=== PATIENT | male | born 1965 | race Hispanic/Latino ===

== ENCOUNTER → 2021-07-10 11:41 | Emergency (ER) | payer OTHER ==
[~2021-07-10 11:41] MED LIST: Ketorolac Tromethamine 30 MG/ML VIAL ONE
== END | disposition home or self-care (01) ==
LOC: CSHERS 11:41
DX: M17.12 Unilateral primary osteoarthritis, left knee (principal); E66.9 Obesity, unspecified
CPT/HCPCS: 96372; 99283; J1885

== ENCOUNTER 2023-06-18 10:45 | Outpatient (CLI) | payer MEDICARE, OTHER | END 2023-06-18 10:46 | disposition home or self-care (01) | LOC: CSHRAD 10:45 | PROVIDERS: ATTEND Family Medicine | DX: M25.561 Pain in right knee (principal) ==

== ENCOUNTER 2023-06-21 13:21 | Emergency (ER) | payer OTHER | END 2023-06-21 18:38 | disposition home or self-care (01) | LOC: CSHERS 13:21 | DX: M25.561 Pain in right knee (principal); E66.9 Obesity, unspecified | CPT/HCPCS: 99283 ==

== ENCOUNTER 2025-07-12 08:38 | Emergency (ER) | payer MEDICARE, OTHER | END 2025-07-12 10:30 | disposition home or self-care (01) | LOC: CSHERS 08:38 | DX: B35.6 Tinea cruris (principal); I10 Essential (primary) hypertension | CPT/HCPCS: 99283 ==